=== PATIENT | male | born 1960 | race African-American/Black ===

== ENCOUNTER 2023-06-30 11:13 | Outpatient (CLI) | payer OTHER | END 2023-06-30 11:14 | disposition home or self-care (01) | LOC: BICRAD 11:13 | PROVIDERS: ATTEND Chiropractor | DX: M17.0 Bilateral primary osteoarthritis of knee (principal); M25.862 Other specified joint disorders, left knee; R93.7 Abnormal findings on diagnostic imaging of other parts of musculoskeletal system; Z96.641 Presence of right artificial hip joint ==